=== PATIENT | female | born 1950 | race Caucasian/White ===

== ENCOUNTER → 2020-03-18 | Outpatient (CLI) | payer MEDICARE, OTHER ==
[~2020-03-18] MED LIST: ATIVAN 1MG T1 MG/TAB PO; BAYER PLUS325 MG PO; CALCIUM1 CAP PO; CARDIZEM CD 24240 MG PO; DESONIDE0.051 TOP; EFFEXOR XR75 MG/CAP PO; FLEXERIL 1010 MG/TAB PO; GRALISE600 MG PO; LIPITOR 40MG TA40 MG PO; LOTRIMIN TOP; NEUPRO6 MG/24 HR TD; NORCO 325 MG-51 TAB PO; PLAVIX 75MG TAB75 MG PO; PRINIVIL20 MG PO; REQUIP 1MG T1 MG/TAB PO; TRIAMCINOLONE0.11 TOP; VITAMIN D31000 IU PO; ZANTAC 150MG T150 MG PO
== END ==
LOC: COL.VAS 07:43
DX: M79.605 Pain in left leg (principal)